=== PATIENT | female | born 1995 | race African-American/Black ===

== ENCOUNTER 2017-04-01 21:17 | Emergency (ER) | payer MEDICAID, OTHER ==
[2017-04-01 21:23] VITALS: BP 112/63
--- NOTE | 2017-04-01 22:02 | ED Physician Documentation ---
PD HPI HEENT - Stated complaint Stated Complaint: SORE THROAT - Chief complaint Chief Complaint: Heent - History obtained from History obtained from: Patient - History of Present Illness Timing - onset: How many days ago (3-4) Timing - duration: Days Timing - details: Gradual onset, Constant, Waxing and waning Pain level now: 8 Location: Sinuses, Throat Improves: Nothing Worsens: [place] Associated symptoms: Fever (subjective (did not take temperature)), Congestion, Cough Recently seen: Not recently seen - Additional information Additional information: c/o 3-4 days of sore throat and odynophagia, 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 HEENT: Tonsil/Adenoidectomy - Present Medications Home Medications: Ambulatory Orders Medication Instructions Recorded Confirmed Albuterol Sulfate [Albuterol 1 - 2 puffs PO BIDWM PRN 12/10/13 07/09/14 Sulfate Hfa] Metoclopramide [Reglan] 5 - 10 mg PO Q6H #20 tablet 07/09/14 HYDROcod/ACETAM 5/325 [[place] 5/325] 1 - 2 ea PO Q6H PRN #15 tablet 04/01/17 Pseudoephedrine HCl [Wal-Phed D] 120 mg PO BID #10 tablet.er 04/01/17 - Allergies Allergies/Adverse Reactions: Allergies Allergy/AdvReac Type Severity Reaction Status Date / Time No Known Drug Allergies Allergy Verified 04/01/17 21:23 - Social History Does the pt smoke?: No Smoking Status: Never smoker Does the pt drink ETOH?: No Does the pt have substance abuse?: No - Immunizations Immunizations are current?: Yes - POLST Patient has POLST: No PD ED PE NORMAL - Vitals Vital signs reviewed: Yes - General General: Alert and oriented X 3, No acute distress, Well developed/nourished - Neck Neck: Supple, no meningeal sign - Cardiac Cardiac: RRR, No murmur - Respiratory Respiratory: No respiratory distress, Clear bilaterally PD ED PE EXPANDED - HEENT HEENT: R TM dull, L TM dull, Pharyngeal erythema Results - Vitals Vitals: Vital Signs - 24 hr 04/01/17 21:21 Temperature 36.8 C Heart Rate 103 H Respiratory 17 Rate Blood Pressure 112/63 O2 Saturation 98 Oxygen O2 Source Room air - Labs Labs: Laboratory Tests 04/01/17 21:23 Group A Strep Rapid Negative PD MEDICAL DECISION MAKING - ED course Complexity details: reviewed results, considered differential, d/w patient Departure - Departure Disposition: 01 Home, Self Care Clinical Impression: Pharyngitis, Sinusitis Condition: Good Instructions: ED Sinusitis No Abx, ED Pharyngitis Viral Follow-Up: Monique Cobb PA-C [Primary Care Provider] - Prescriptions: HYDROcod/ACETAM 5/325 [[place] 5/325] 1 - 2 ea PO Q6H PRN #15 tablet PRN Reason: Pain Pseudoephedrine HCl [Wal-Phed D] 120 mg PO BID #10 tablet.er Discharge Date/Time: 04/01/17 22:30
[2017-04-01] MEDS ORDERED: DEXAMETHASONE 10 MG/ML VIAL PO STA (22:19)
[2017-04-01] MEDS ORDERED: HYDROcod/ACETAM 5/325 MG TABLET PO STA (22:19)
== END 2017-04-01 22:30 | disposition home or self-care (01) ==
LOC: ED 21:17
DX: J02.9 Acute pharyngitis, unspecified (principal); J32.9 Chronic sinusitis, unspecified; J45.909 Unspecified asthma, uncomplicated
CPT/HCPCS: 87070; 87430; 99283; A9270

== ENCOUNTER 2017-04-10 08:01 | Emergency (ER) | payer OTHER ==
[2017-04-10] MEDS ORDERED: SODIUM CHLORIDE 0.9% 1,000 ML IV ONE (10:13)
[2017-04-10] MEDS ORDERED: IBUPROFEN 800 MG TABLET PO STA (10:13)
[2017-04-10 10:26] LABS: BASOPHILS % (AUTO) 0.6 %; EOSINOPHILS # (AUTO) 0.1 10^3/uL (0.0-0.7); HGB - HEMOGLOBIN 13.9 g/dL (12.0-16.0); LYMPHOCYTES # (AUTO) 1.9 10^3/uL (1.5-3.5); LYMPHOCYTES % (AUTO) 25.3 %; MEAN CORPUSCULAR HEMOGLOBIN 30.9 pg (27.0-31.0); MEAN CORPUSCULAR HGB CONC 33.4 g/dL (32.0-36.0); MEAN CORPUSCULAR VOLUME 92.4 fL (81.0-99.0); MEAN PLATELET VOLUME 6.6 fL (7.9-10.8); MONOCYTES # (AUTO) 0.6 10^3/uL (0.0-1.0); MONOCYTES % (AUTO) 8.3 %; NEUTROPHILS # (AUTO) 4.8 10^3/uL (1.5-6.6); NEUTROPHILS % (AUTO) 64.8 %; PLT - PLATELET COUNT 357 10^3/uL (130-450); RED CELL DISTRIBUTION WIDTH 12.7 % (12.0-15.0); WHITE BLOOD COUNT 7.4 x10^3/uL (4.8-10.8)
[2017-04-10 10:39] LABS: ALBUMIN 3.8 g/dL (3.2-5.5); BILIRUBIN,TOTAL 0.6 mg/dL (0.2-1.0); CALCIUM 9.2 mg/dL (8.5-10.3); CREATININE 0.7 mg/dL (0.4-1.0); TOTAL PROTEIN 7.6 g/dL (6.7-8.2)
[2017-04-10 11:07] LABS: BILIRUBIN,URINE NEGATIVE (NEGATIVE); GLUCOSE, URINE (UA) NEGATIVE (NEGATIVE); KETONES,URINE (UA) NEGATIVE (NEGATIVE); LEUKOCYTE ESTERASE, URINE NEGATIVE (NEGATIVE); NITRITE,URINE NEGATIVE (NEGATIVE); OCCULT BLOOD,URINE NEGATIVE (NEGATIVE); PROTEIN,URINE NEGATIVE (NEGATIVE); UROBILINOGEN,URINE 0.2 (NORMAL) E.U./dL (NORMAL)
[2017-04-10 11:08] LABS: CLARITY,URINE CLEAR (CLEAR)
[2017-04-10] MEDS ORDERED: LOPERAMIDE 2 MG CAPSULE PO STA (11:50)
--- NOTE | 2017-04-10 11:53 | ED Physician Documentation ---
PD HPI ABD PAIN - Stated complaint Stated Complaint: ABD PX/DIARRHEA - Chief complaint Chief Complaint: Abd Pain - History obtained from History obtained from: Patient - History of Present Illness Timing - onset: How many days ago (2) Timing - duration: Days (2) Timing - details: Still present Quality: Cramping Location: All over / everywhere Associated symptoms: Nausea, Diarrhea. No: Vomiting Similar symptoms before: Has not had sx before - Additional information Additional information: The patient is a 21-year-old female who presents with generalized abdominal discomfort, nausea, that started 2 days. It has gotten worse since last night, with multiple episodes of watery diarrhea. She reports associated myalgias and chills, but denies fever, vomiting, or dysuria. She has an IUD and does not know the date of her last menstrual period. She had upper respiratory symptoms with sore throat 1 week ago, but that got better. She has taken Tylenol today without relief. Review of Systems Constitutional: reports: Chills, Myalgias. denies: Fever Nose: denies: Congestion Throat: denies: Sore throat Respiratory: denies: Dyspnea, Cough GI: reports: Abdominal Pain, Nausea, Diarrhea. denies: Vomiting : reports: Control (IUD). 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 HEENT: Tonsil/Adenoidectomy - Present Medications Home Medications: Ambulatory Orders Medication Instructions Recorded Confirmed Albuterol Sulfate [Albuterol 1 - 2 puffs PO BIDWM PRN 12/10/13 07/09/14 Sulfate Hfa] Metoclopramide [Reglan] 5 - 10 mg PO Q6H #20 tablet 07/09/14 HYDROcod/ACETAM 5/325 [[place] 5/325] 1 - 2 ea PO Q6H PRN #15 tablet 04/01/17 Pseudoephedrine HCl [Wal-Phed D] 120 mg PO BID #10 tablet.er 04/01/17 Loperamide [Imodium] 2 mg PO ONCE PRN #10 capsule 04/10/17 - Allergies Allergies/Adverse Reactions: Allergies Allergy/AdvReac Type Severity Reaction Status Date / Time No Known Drug Allergies Allergy Verified 04/10/17 08:15 - Social History Does the pt smoke?: No Smoking Status: Never smoker Does the pt drink ETOH?: No Does the pt have substance abuse?: No - Immunizations Immunizations are current?: Yes - POLST Patient has POLST: No PD ED PE NORMAL - Vitals Vital signs reviewed: Yes (normal) - General General: Alert and oriented X 3, Well developed/nourished - HEENT HEENT: Atraumatic, Moist mucous membranes, Pharynx benign - Neck Neck: Supple, no meningeal sign, No adenopathy - Cardiac Cardiac: RRR, No murmur - Respiratory Respiratory: No respiratory distress, Clear bilaterally - Abdomen Abdomen: Normal bowel sounds, Soft, Non tender, No organomegaly - Back Back: No CVA TTP - Derm Derm: No rash - Extremities Extremities: No edema, No calf tenderness / cord - Neuro Neuro: Alert and oriented X 3, No motor deficit, Normal speech Results - Vitals Vitals: Oxygen O2 Source Room air - Labs Labs: Laboratory Tests 04/10/17 04/10/17 04/10/17 10:14 10:14 10:14 WBC 7.4 RBC 4.50 Hgb 13.9 Hct 41.6 MCV 92.4 MCH 30.9 MCHC 33.4 RDW 12.7 Plt Count 357 MPV 6.6 L Neut # 4.8 Lymph # 1.9 [place] # 0.6 Eos # 0.1 Baso # 0.0 Absolute Nucleated RBC 0.00 Nucleated RBC % 0.0 Sodium 136 Potassium 3.7 Chloride 100 L Carbon Dioxide 26 Anion Gap 10.0 BUN 10 Creatinine 0.7 Estimated GFR (MDRD) 127 Glucose 94 Calcium 9.2 Total Bilirubin 0.6 AST 18 ALT 11 Alkaline Phosphatase 36 L Total Protein 7.6 Albumin 3.8 Globulin 3.8 Albumin/Globulin Ratio 1.0 Lipase 67 H HCG, Quant < 0.60 Urine Color Urine Clarity Urine pH Ur Specific [place] Urine Protein Urine Glucose (UA) Urine Ketones Urine Occult Blood Urine Nitrite Urine Bilirubin Urine Urobilinogen Ur Leukocyte Esterase Ur Microscopic Review Urine Culture Comments 04/10/17 10:55 WBC RBC Hgb Hct MCV MCH MCHC RDW Plt Count MPV Neut # Lymph # [place] # Eos # Baso # Absolute Nucleated RBC Nucleated RBC % Sodium Potassium Chloride Carbon Dioxide Anion Gap BUN Creatinine Estimated GFR (MDRD) Glucose Calcium Total Bilirubin AST ALT Alkaline Phosphatase Total Protein Albumin Globulin Albumin/Globulin Ratio Lipase HCG, Quant Urine Color YELLOW Urine Clarity CLEAR Urine pH 8.0 H Ur Specific [place] 1.015 Urine Protein NEGATIVE Urine Glucose (UA) NEGATIVE Urine Ketones NEGATIVE Urine Occult Blood NEGATIVE Urine Nitrite NEGATIVE Urine Bilirubin NEGATIVE Urine Urobilinogen 0.2 (NORMAL) Ur Leukocyte Esterase NEGATIVE Ur Microscopic Review NOT INDICATED Urine Culture Comments NOT INDICATED PD MEDICAL DECISION MAKING - ED course Complexity details: reviewed results, re-evaluated patient, considered differential, d/w patient ED course: The patient's presentation is most consistent with viral gastroenteritis, with watery diarrhea and crampy abdominal discomfort. Her abdominal exam is benign. Urinalysis is negative, CBC is normal, and chemistry panel is normal except for minimally elevated lipase of 67. Her symptoms are not suggestive of pancreatitis. Treatment in the emergency department included administration of normal saline 1 L IV, ibuprofen 800 mg orally, and Imodium 2 mg orally. Her symptoms improved with the above treatment. She is being discharged with prescription for Imodium. I discussed with her the expected course of illness, symptomatic treatment and outpatient follow-up, as well as potentially worrisome signs or symptoms that should prompt reevaluation in the emergency department Departure - Departure Disposition: 01 Home, Self Care Clinical Impression: Abdominal pain, Gastroenteritis Condition: Stable Instructions: ED Gastroenteritis Viral Follow-Up: Monique Cobb PA-C [Primary Care Provider] - Prescriptions: Loperamide [Imodium] 2 mg PO ONCE PRN #10 capsule PRN Reason: Diarrhea Comments: You can use Imodium as prescribed if needed for recurrent diarrhea. Drink plenty of fluids. You can use Tylenol or ibuprofen for fever or discomfort. Follow up with your primary physician within 1-2 weeks. Call to schedule appointment. Return to the emergency department if you develop increasing abdominal pain, recurrent dehydration, or otherwise worsening symptoms. Forms: Activity restrictions Discharge Date/Time: 04/10/17 12:08
[2017-04-10 12:07] VITALS: BP 95/56
== END 2017-04-10 12:08 | disposition home or self-care (01) ==
LOC: ED 08:01
DX: K52.9 Noninfective gastroenteritis and colitis, unspecified (principal); J45.909 Unspecified asthma, uncomplicated; Z97.5 Presence of (intrauterine) contraceptive device
CPT/HCPCS: 36415; 80053; 81003; 83690; 84702; 85025; 96360; 99283; A9270; 81001; 87086

== ENCOUNTER 2018-09-12 09:02 | Emergency (ER) | payer OTHER ==
[2018-09-12] MEDS ORDERED: IBUPROFEN 800 MG TABLET PO STA (09:12)
[2018-09-12 09:14] VITALS: BP 113/64
--- NOTE | 2018-09-12 09:20 | ED Physician Documentation ---
PD HPI LOWER EXT INJURY - Stated complaint Stated Complaint: RT ANKLE INJURY - Chief complaint Chief Complaint: Ext Problem - History obtained from History obtained from: Patient - History of Present Illness PD HPI LOW EXT INJURY LOCATION: Right, Ankle Type of injury: Fall, Twist Where injury occurred: Home Timing - onset: Yesterday Timing - duration: Days Timing - details: Gradual onset Pain level max: 7 Pain level now: 6 Improved by: Rest, Ice, Immobilization Worsened by: Moving, Palpating Associated symptoms: Swelling. 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 HEENT: Tonsil/Adenoidectomy - Present Medications Home Medications: Ambulatory Orders Medication Instructions Recorded Confirmed Albuterol Sulfate [Albuterol 1 - 2 puffs PO BIDWM PRN 12/10/13 07/09/14 Sulfate Hfa] Metoclopramide [Reglan] 5 - 10 mg PO Q6H #20 tablet 07/09/14 HYDROcod/ACETAM 5/325 [[place] 5/325] 1 - 2 ea PO Q6H PRN #15 tablet 04/01/17 Pseudoephedrine HCl [Wal-Phed D] 120 mg PO BID #10 tablet.er 04/01/17 Loperamide [Imodium] 2 mg PO ONCE PRN #10 capsule 04/10/17 - Allergies Allergies/Adverse Reactions: Allergies Allergy/AdvReac Type Severity Reaction Status Date / Time No Known Drug Allergies Allergy Verified 04/10/17 08:15 - Social History Does the pt smoke?: No Smoking Status: Never smoker Does the pt drink ETOH?: No Does the pt have substance abuse?: No - Immunizations Immunizations are current?: Yes - POLST Patient has POLST: No PD ED PE NORMAL - Vitals Vital signs reviewed: Yes - General General: Alert and oriented X 3, No acute distress - HEENT HEENT: Moist mucous membranes - Neck Neck: Supple, no meningeal sign - Cardiac Cardiac: RRR, Strong equal pulses - Respiratory Respiratory: No respiratory distress, Clear bilaterally - Derm Derm: Warm and dry - Extremities Extremities: Other (R ankle - TTP lateral malleolus. swelling present. NVI. otherwise normal foot and ankle exam. ) - Neuro Neuro: Alert and oriented X 3 Results - Vitals Vitals: Vital Signs - 24 hr 09/12/18 09:10 Temperature 36.6 C Heart Rate 74 Respiratory 16 Rate Blood Pressure 113/64 O2 Saturation 100 Oxygen O2 Source Room air - Rads (name of study) R ankle xray Radiology: Prelim report reviewed, EMP read contemporaneously, See rad report (no acute findings) PD MEDICAL DECISION MAKING - ED course Complexity details: reviewed results, re-evaluated patient, considered differential, d/w patient ED course: 22-year-old female with a right ankle sprain. Placed in an Aircast and given crutches. Will continue supportive care and follow-up with her doctor. No fractures on x-ray. Patient counseled regarding signs and symptoms for which I believe and urgent re-evaluation would be necessary. Patient with good understanding of and agreement to plan and is comfortable going home at this time This document was made in part using voice recognition software. While efforts are made to proofread this document, sound alike and grammatical errors may occur. Departure - Departure Disposition: 01 Home, Self Care Clinical Impression: Right ankle sprain Qualifiers: Encounter type: initial encounter Involved ligament of ankle: unspecified ligament Qualified Code(s): S93.401A - Sprain of unspecified ligament of right a nkle, initial encounter Condition: Good Health Concerns: ankle pain Plan of Treatment: supportive care Care Goals: improve pain Assessment: ankle sprain Instructions: ED Sprain Ankle W X Ray Follow-Up: your,doctor in 1 week [Other] Comments: Return if you worsen. You can bear weight as tolerated. Forms: Activity restrictions Discharge Date/Time: 09/12/18 10:15
--- NOTE | 2018-09-12 09:37 | XRAY Report ---
Reason: fall, R ankle pain Procedure Date: 09/12/2018 Accession Number: [id number] / [id number] Procedure: XR - Ankle 3 View RT CPT Code: FULL RESULT: EXAM: RIGHT ANKLE RADIOGRAPHY EXAM DATE: 09/12/2018 09:29 AM. CLINICAL HISTORY: Fall yesterday, R ankle pain. COMPARISON: None. TECHNIQUE: 3 views. FINDINGS: Bones: No fractures or bone lesions. Joints: No effusion. No subluxations. The ankle mortise is normally aligned. Soft Tissues: There is soft tissue swelling, predominantly in the lateral malleolus without radiopaque foreign body. IMPRESSION: Negative for fracture, bony injury or subluxation in the right ankle radiography. [facility]
== END 2018-09-12 10:15 | disposition home or self-care (01) ==
LOC: ED 09:02
DX: S93.401A Sprain of unspecified ligament of right ankle, initial encounter (principal); X50.1XXA Overexertion from prolonged static or awkward postures, initial encounter; Y92.009 Unspecified place in unspecified non-institutional (private) residence as the place of occurrence of the external cause
CPT/HCPCS: 73610; 99282; 99283; A9270